=== PATIENT | female | born 1980 | race Caucasian/White ===

== ENCOUNTER 2017-10-17 17:41 | Emergency (ER) | payer OTHER, SELFPAY ==
[2017-10-17] MEDS ORDERED: HYDROcodone/Acetaminophen 5/325 mg Tablet ONE (18:13)
--- NOTE | 2017-10-17 20:21 | ULT ---
PELVIC ULTRASOUND: History: Pelvic pain. Comparison: None. Technique: Transabdominal and endovaginal imaging of a gravid uterus is performed. FINDINGS: Uterus is identified. There no myometrial masses. The uterus measures 4.4 x 6.0 x 9.3 cm. Within the endometrium is a gestational sac, yolk sac, and pole. [place] rump length is 0.57 cm, correspondi ng to gestational age of 6 weeks 3 days. There are heart tones at the rate between 106 - 111 bp m. No subchorionic hemorrhage. No free fluid. Left ovary and right ovary have a normal echotexture. Right ovary measures 2.6 x 2.6 x 2.2 cm. Left o vary measures 1.8 x 3.1 x 1.9 cm. Ovarian Doppler: Vascular flow to right and left ovary. IMPRESSION: Single intrauterine gestation with heart tones. Gestational age by crown-rump length is 6 weeks 3 days. POS: [facility]
== END 2017-10-17 19:38 | disposition home or self-care (01) ==
LOC: ERS 17:41
DX: O20.0 Threatened abortion (principal); O09.521 Supervision of elderly multigravida, first trimester; O99.331 Smoking (tobacco) complicating pregnancy, first trimester; F17.210 Nicotine dependence, cigarettes, uncomplicated; Z3A.01 Less than 8 weeks gestation of pregnancy
CPT/HCPCS: 76856; 99406

== ENCOUNTER 2017-10-24 15:54 | Emergency (ER) | payer OTHER ==
[2017-10-24 16:53] LABS: #Lymphocytes 2.5 thou/uL (1.20-3.40); #Monocytes 0.5 thou/uL (0.11-0.59); #Neutrophils 7.4 thou/uL (1.40-6.50); %Basophils 0.3 % (0.0-1.0); %Eosinophils 0.2 % (0.0-10.0); %Lymphocytes 23.8 % (21.0-51.0); %Monocytes 4.5 % (0.0-10.0); Hematocrit 37.7 % (36.0-47.0); Mean Platelet Volume 5.9 fL (7.4-10.4); Red Blood Cell (RBC) Count 3.79 mill/uL (4.20-5.40); White Blood Cell (WBC) Count 10.4 thou/uL (4.8-10.8)
[2017-10-24 18:28] LABS: ALT (SGPT) 35 U/L (8-55); AST (SGOT) 27 U/L (5-34); Alkaline Phosphatase 31 U/L (40-150); Anion Gap 10 mmol/L (10-20); BUN (Urea Nitrogen) 9 mg/dL (7.0-18.7); Bilirubin, Total 0.4 mg/dL (0.2-1.2); Calc. Creatinine Clearance 0 mL/min (70-130); Carbon Dioxide 25 mmol/L (22-29); Chloride 104 mmol/L (98-107); Estimated GFR-MDRD Greater than 90; Globulin 3.4 g/dL (2.4-3.5); Protein, Total 7.3 g/dL (6.0-8.3)
[2017-10-24 19:05] LABS: Bilirubin Negative (Negative); Blood, Urine Large (Negative); Glucose, Urine (Dipstick) Negative (Negative); Ketone, Urine 15 mg/dL (Negative); Nitrite Negative (Negative); Protein, Urine (Dipstick) Trace mg/dL (Neg-Trace)
[2017-10-24 19:20] LABS: Bacteria/HPF 1+ HPF (None Seen); Hyaline Casts/LPF 4-6 HYALINE CAST LPF (0-3 Hyaline); RBC/HPF GREATER THAN 50-TNTC HPF (0-3); WBC/HPF 0-3 HPF (0-3)
[2017-10-24] MEDS ORDERED: Acetaminophen 500 MG TAB ONE (19:48)
[2017-10-24] MEDS ORDERED: Acetaminophen/Codeine 30-300mg Tablet ONE (19:48)
== END 2017-10-24 20:48 | disposition home or self-care (01) ==
LOC: ERS 15:54
DX: O09.521 Supervision of elderly multigravida, first trimester (principal); O20.0 Threatened abortion; O99.89 Other specified diseases and conditions complicating pregnancy, childbirth and the puerperium; M54.5 Low back pain; O99.331 Smoking (tobacco) complicating pregnancy, first trimester; F17.210 Nicotine dependence, cigarettes, uncomplicated; Z3A.01 Less than 8 weeks gestation of pregnancy
CPT/HCPCS: 36415; 80053; 81003; 81015; 84702; 85025

== ENCOUNTER 2017-10-25 13:08 | Day surgery (SDC) | payer MEDICAID ==
[2017-10-25] MEDS ORDERED: HYDROmorphone 0.5 MG/0.5 ML SYRINGE ONE ×2 (13:29→14:15)
--- NOTE | 2017-10-25 15:17 | ULT ---
PELVIC ULTRASOUND INCLUDING TRANSABDOMINAL, TRANSVAGINAL, AND VASCULAR DUPLEX WITH COLOR AND SPECTRAL DOPPLER IMAGING: HISTORY: A 37-year-old female with heavy bleeding for several days and pain. COMPARISON: 10/17/17. FINDINGS: The uterus measures 13.2 x 5.6 x 6.5 cm. The right ovary measures 2.1 x 2.9 x 3.2 cm. The left ovar y measures 1.5 x 2.1 x 2.6 cm. Small 1.2 x 1.4 right ovarian follicle cyst. There is no normal gest ational sac. There is probably an abnormal small irregular-shaped gestational sac residual with some heterogeneous echogenic material within the endometrial cavity and extending into a dilated lower ut erine segment and even cervix, evidence for incomplete Trace cul-de-sac fluid. IMPRESSION: 1. Evidence for incomplete with considerable residual material within the intrauterine cavi ty including the lower uterine segment, evidence for retained products of conception. 2. Vascular duplex including color and spectral Doppler imaging demonstrates arterial inflow and anu ous outflow to both ovaries. No evidence for ovarian torsion. 3. Correlate with serum HCGs. POS: [facility]
[2017-10-25] MEDS ORDERED: Misoprostol 200 MCG TAB PR SCH (15:30)
[2017-10-25] MEDS ORDERED: Dexamethasone 20 MG/5 ML VIAL ONE (16:16)
[2017-10-25] MEDS ORDERED: Ketorolac Tromethamine 30 MG/ML VIAL ONE ×2 (16:16→20:43)
[2017-10-25] MEDS ORDERED: Succinylcholine Chloride 20 MG/ML 10 ml SYRINGE FS ONE (16:16)
[2017-10-25] MEDS ORDERED: Propofol 200 MG/20 ML VIAL ONE (16:16)
[2017-10-25] MEDS ORDERED: Ondansetron HCl/PF 4 MG/2 ML Vial ONE (16:16)
[2017-10-25] MEDS ORDERED: Lidocaine 1% PF 5 ML VIAL ONE (16:16)
[2017-10-25 16:49] LABS: #Lymphocytes 2.1 thou/uL (1.20-3.40); #Monocytes 0.7 thou/uL (0.11-0.59); %Basophils 0.3 % (0.0-1.0); %Eosinophils 0.1 % (0.0-10.0); %Lymphocytes 14.1 % (21.0-51.0); %Monocytes 4.5 % (0.0-10.0); Hematocrit 30.3 % (36.0-47.0); Mean Platelet Volume 5.9 fL (7.4-10.4); Red Blood Cell (RBC) Count 3.04 mill/uL (4.20-5.40); White Blood Cell (WBC) Count 14.8 thou/uL (4.8-10.8)
[2017-10-25] MEDS ORDERED: Fentanyl 100 MCG/2 ML VIAL ONE ×4 (18:36→21:48)
[2017-10-25] MEDS ORDERED: Midazolam HCl 2 mg/2 ml Vial ONE (18:46)
[2017-10-25] MEDS ORDERED: Doxycycline Hyclate 100 MG VIAL ONE (22:16)
--- NOTE | 2017-10-26 04:50 | OP ---
DATE OF ENCOUNTER: 10/25/2017 PREOPERATIVE DIAGNOSES: Incomplete , vaginal bleeding. POSTOPERATIVE DIAGNOSIS: Incomplete . PROCEDURE: Suction D&C. COUNTS: Correct. COMPLICATIONS: None. CONDITION: Stable to recovery room. ESTIMATED BLOOD LOSS: About 100 mL. SPECIMENS: Products of conception to pathology. INDICATIONS FOR PROCEDURE: Ms. Iliana Dalal is a 37-year-old female who presented to the emergenc y room with heavy vaginal bleeding and acute pain with a known miscarriages started last week. Given the patient's degree of pain and bleeding and with little success with medical management, decision was made to move forward with a D&C. Patient was counseled to the risks and benefits of a suction D&C and expressed informed consent and we move forward. DESCRIPTION OF PROCEDURE: The patient was placed under general anesthesia without difficulty and jolly vijay in dorsal lithotomy position in [facility]. She was prepared and draped in the normal steril e fashion. Attention was placed vaginally with the aid of an operative speculum. The single tooth t enaculum was used to grasp the anterior lip of the cervix. The cervix was noted to have a large clot at the os approximately 2 cm across. The outer os once that clot was removed the os from about 3 o' clock to 6 o'clock appeared to have a black portion of the cervix that look denuded. The uterus was sounded to approximately 13 cm with a 7-mm curved curet. The suction D&C was passed 2 to 3 times, 40 cm of water suction. A sharp curet was then passed and noted to have some material, which was subse quently removed with another 2 passes of the suction curet. At the completion of the procedure, ther e was minimal bleeding and the procedure was completed. The tenaculum was removed from the anterior lip of the cervix and again the cervix and cervical os had minimal bleeding. On bimanual exam, the u terus was firm and the cervix was soft. This is the completion of the procedure and the patient was taken out of lithotomy position and extubated and taken to recovery room in stable condition. The pa tient was given intraoperative antibiotics with doxycycline. Patient is being discharged home with 2 days of Toradol to be taken 6 hours apart 10 mg tablets and d oxycycline 100 mg to be taken 3 times a day. Patient has been given instructions that she concomitan tly used Tylenol, but not ibuprofen and then, once she was completed with the Toradol, she can then s tart ibuprofen as needed for cramping and pain. She has also been counseled. We will keep her appoi ntment on Tuesday with Dr. Derrick Garrett.
== END 2017-10-25 23:35 | disposition home or self-care (01) ==
LOC: ERS 13:08 → SDC 18:18
PROVIDERS: ATTEND Obstetrics & Gynecology
PROC: 10D17Z9 Manual Extraction of Products of Conception, Retained, Via Natural or Artificial Opening (ICD-10-PCS; principal; 2017-10-25)
DX: O03.4 Incomplete spontaneous abortion without complication (principal); F17.210 Nicotine dependence, cigarettes, uncomplicated; Z98.890 Other specified postprocedural states; Z79.1 Long term (current) use of non-steroidal anti-inflammatories (NSAID); Z79.899 Other long term (current) drug therapy
CPT/HCPCS: 36415; 76856; 80053; 81003; 81015; 84702; 85025; 86850; 86900; 86901; 88305; 96361; 96374; 96375; 96376; 99406; J0595; J1100; J1170; J1885; J2001; J2250; J2405; J2704; J3010

== ENCOUNTER 2018-07-19 10:37 | Day surgery (SDC) | payer OTHER ==
[2018-07-18 14:27] VITALS: BMI 28.3
--- NOTE | 2018-07-18 20:18 | HP ---
HISTORY OF PRESENT ILLNESS: Ms. Iliana Love is a 38-year-old at 14 weeks and 0 days who presents for a history indicated cervical cerclage. The patient has a history of 2 prior deliveries, her initial delivery was in 2004 with a 20-week previable spontaneous delivery and her second delivery was in 2006 with a 25-week delivery secondary to premature rupture of membrane that led to labor. The patient subsequently had a in 2014 where she underwent a rescue cerclage and subsequently carried a at 39 weeks. The patient has a history of delivery and cervical insufficiency. PAST MEDICAL HISTORY: 1. Advanced maternal age. 2. History of cervical insufficiency. 3. Herpes simplex virus. 4. Hepatitis C carrier. 5. Tobacco use. 6. Opioid dependence. PAST SURGICAL HISTORY: 1. delivery x2. 2. Dilation and curettage. OBSTETRICAL HISTORY: -2-3-2. 1. 2000, elective . 2. 2002, elective . 3. 2004, 20-week delivery due to cervical insufficiency. 4. 2006, 25-week delivery due to cervical insufficiency and PPROM. 5. 2014, 39-week repeat low transverse delivery (patient required rescue cerclage during this at 20 weeks. 6. 2017, spontaneous . GYNECOLOGY HISTORY: HSV, reports normal Pap smear. MEDICATIONS: 1. Suboxone 2. vitamins. ALLERGIES: STADOL. OBJECTIVE: VITAL SIGNS: Stable. GENERAL: No acute distress. See pelvic exam on day of evaluation and cervix is closed, long with no signs of funneling or cervical dilation. LABORATORY DATA: Blood type is O positive, antibody screen is negative. NIPT testing is negative. RPR negative, HIV negative, hepatitis B surface antigen is negative, rubella is immune. Hemoglobin is 12.8, hematocrit is 39.2. Pap was normal. Gonorrhea and chlamydia negative. Urine drug screen negative. ASSESSMENT: A 38-year-old at 14 weeks and 0 days with history of cervical insufficiency, advanced maternal age. HSV, HCV, tobacco use and opioid dependence. PLAN: The patient has seen maternal medicine for recommendations and was counseled on options of serial cervical lengths versus a history indicated cervical cerclage along with weekly 17-hydroxyprogesterone injections starting at 16 weeks. The patient desires a history indicated cervical cerclage for prophylaxis due to her history. The patient was also counseled on the remaining comorbidities to her and has decreased tobacco use. She is stable on her Suboxone dose and has no recent issues with hepatitis or HSV. The patient has been consented for cervical cerclage today understanding the risk of still having delivery due to cervical insufficiency, risk of rupture of membranes, spontaneous and chorioamnionitis. JUANITA
[2018-07-19] MEDS ORDERED: CEFAZOLIN/Water 2 GM/20 ML SYRINGE ONE (12:14)
[2018-07-19] MEDS ORDERED: CEFAZOLIN 1 GM VIAL SLOW IVP SCH (12:15)
[2018-07-19 12:25] LABS: #Basophils 0.1 thou/uL (0.0-0.2); #Lymphocytes 1.7 thou/uL (1.20-3.40); #Monocytes 0.4 thou/uL (0.11-0.59); #Neutrophils 5.8 thou/uL (1.40-6.50); %Basophils 0.7 % (0.0-1.0); %Eosinophils 0.4 % (0.0-10.0); %Lymphocytes 20.9 % (21.0-51.0); %Monocytes 4.7 % (0.0-10.0); %Neutrophils 73.3 % (42.0-75.0); Hemoglobin 12.9 g/dL (12.0-16.0); Mean Corpuscular HGB CONC 35.7 g/dL (32.0-36.0); Mean Corpuscular Hemoglobin 33.9 pg (27.0-31.0); Mean Corpuscular Volume 94.9 fL (78.0-98.0); Mean Platelet Volume 6.3 fL (7.4-10.4); Platelet Count 334 thou/uL (130-400); Red Blood Cell (RBC) Count 3.81 mill/uL (4.20-5.40); White Blood Cell (WBC) Count 7.9 thou/uL (4.8-10.8)
[2018-07-19] MEDS ORDERED: Lidocaine 1% (PF) 30 ML VIAL ONE (12:46)
[2018-07-19] MEDS ORDERED: Fentanyl 100 MCG/2 ML VIAL ONE (12:48)
[2018-07-19 12:58] LABS: ALT (SGPT) 39 U/L (8-55); AST (SGOT) 29 U/L (5-34); Albumin 3.9 g/dL (3.5-5.0); Alkaline Phosphatase 37 U/L (40-150); Anion Gap 12 mmol/L (10-20); BUN (Urea Nitrogen) 7 mg/dL (7.0-18.7); Bilirubin, Total 0.4 mg/dL (0.2-1.2); Calc. Creatinine Clearance 153 mL/min (70-130); Calcium 9.5 mg/dL (7.8-10.44); Carbon Dioxide 24 mmol/L (22-29); Chloride 104 mmol/L (98-107); Estimated GFR-MDRD Greater than 90; Globulin 3.5 g/dL (2.4-3.5); Glucose 76 mg/dL (70-105); Potassium 3.6 mmol/L (3.5-5.1); Protein, Total 7.4 g/dL (6.0-8.3); Sodium 136 mmol/L (136-145)
[2018-07-19] MEDS ORDERED: Lidocaine 2% 10 ML INJ ONE (13:02)
[2018-07-19] MEDS ORDERED: Bupivacaine 0.75% W/DEXTROSE 8.25% 2 ML AMP ONE (13:02)
[2018-07-19 13:30] LABS: Amphetamine Not Detected (NotDetected); Barbiturates Screen Not Detected (NotDetected); Benzodiazepine Screen Not Detected (NotDetected); Cocaine Metabolite Screen Not Detected (NotDetected); Medtox Control Line Valid? VALID (VALID); Medtox Reader # READER 1; Methadone Not Detected (NotDetected); Methamphetamine Not Detected (NotDetected); Opiate Screen Not Detected (NotDetected); Oxycodone Screen Not Detected (NotDetected); Phencyclidine (PCP) Not Detected (NotDetected); THC/Cannabinoid Screen Not Detected (NotDetected); Tricyclic Screen Not Detected (NotDetected)
[2018-07-19] MEDS ORDERED: Acetaminophen 500 MG TAB ONE (14:25)
--- NOTE | 2018-07-20 03:39 | OP ---
PREOPERATIVE DIAGNOSES: 1. A 14-week and 0-day intrauterine . 2. History of cervical insufficiency requiring a rescue cerclage. 3. Advanced maternal age. 4. Hepatitis C carrier. 5. Tobacco use and opioid dependence. POSTOPERATIVE DIAGNOSES: 1. A 14-week and 0-day intrauterine . 2. History of cervical insufficiency requiring a rescue cerclage. 3. Advanced maternal age. 4. Hepatitis C carrier. 5. Tobacco use and opioid dependence. PROCEDURE: Transvaginal Dalal cervical cerclage using Mersilene tape. SURGEON: Sari Thorne D.O. ESTIMATED BLOOD LOSS: 20 mL. COMPLICATIONS: None. FINDINGS: heart tones were assessed prior to surgery was 160s. Normal appearing external genitalia, normal vaginal and cervical epithelium with a closed cervical os. INDICATIONS FOR THE PROCEDURE: Ms. Iliana Love is a 38-year-old G7, P2, at 14 weeks and 0 days, who presents for a history indicated cervical cerclage. The patient has a history of 2 prior deliveries. Her initial delivery in 2004 was at 20 weeks of previable spontaneous delivery and her second delivery was in 2006 with a 25-week delivery secondary to premature rupture of membranes had lead to labor and cervical insufficiency. The patient had undergone consultation with maternal medicine, reviewing options of serial cervical length versus a history indicated cerclage and the patient elected to have a history indicated cerclage as well as a weekly 17-hydroxyprogesterone. The patient has been consented for risks, benefits, and alternatives to the cervical cerclage. NIPT and NT are normal. PROCEDURE IN DETAIL: The patient was brought to the operating room. Spinal anesthesia was placed and the patient was placed in dorsal lithotomy position. She was prepped and draped in a sterile fashion. An official timeout was performed. She was given Ancef for surgical prophylaxis. A right-angle was placed in both the posterior and anterior aspect of the vagina. The anterior and posterior aspect of the cervix were grasped using ring forceps. A Dalal transvaginal cervical cerclage was performed in a circumferential fashion using Mersilene tape starting at the 12 o'clock position and ending near the 12 o' clock position. The cerclage was placed approximately 2.5 cm above the external os as further the superior cerclage was not able to be placed due to the patient's anatomy. The cerclage was then secured tightly and the cervical os was noted to be firmly closed after placement. The patient was then taken out of dorsal lithotomy and placed back into supine position. All counts were correct x2. There were no complications. The details of the surgery were reviewed with the patient. JUANITA
[2018-07-21 15:29] LABS: HCV log10 5.969 (.); Hep C PCR-Quant 931000 IU/mL (.)
== END 2018-07-19 17:55 | disposition home or self-care (01) ==
LOC: SDC 10:37
PROVIDERS: ATTEND Obstetrics & Gynecology
PROC: 0UVC7ZZ Restriction of Cervix, Via Natural or Artificial Opening (ICD-10-PCS; principal; 2018-07-19)
DX: O34.32 Maternal care for cervical incompetence, second trimester (principal); O99.830 Other infection carrier state complicating pregnancy; B18.2 Chronic viral hepatitis C; O09.522 Supervision of elderly multigravida, second trimester; O99.322 Drug use complicating pregnancy, second trimester; F11.20 Opioid dependence, uncomplicated; O99.332 Smoking (tobacco) complicating pregnancy, second trimester; F17.200 Nicotine dependence, unspecified, uncomplicated; Z3A.14 14 weeks gestation of pregnancy
CPT/HCPCS: 36415; 80053; 80306; 85025; 86850; 86900; 86901; 87522; J2001; J3010; J3490

== ENCOUNTER 2018-08-08 13:53 | Day surgery (SDC) | payer OTHER ==
[2018-08-08 15:42] VITALS: BMI 28.3
[2018-08-08 15:50] LABS: #Eosinphils 0.1 thou/uL (0.0-0.7); #Lymphocytes 2.2 thou/uL (1.20-3.40); #Monocytes 0.5 thou/uL (0.11-0.59); #Neutrophils 6.2 thou/uL (1.40-6.50); %Eosinophils 0.8 % (0.0-10.0); %Lymphocytes 24.2 % (21.0-51.0); %Monocytes 5.6 % (0.0-10.0); %Neutrophils 69.4 % (42.0-75.0); Mean Corpuscular HGB CONC 34.7 g/dL (32.0-36.0); Mean Corpuscular Hemoglobin 33.4 pg (27.0-31.0); Mean Corpuscular Volume 96.4 fL (78.0-98.0); Mean Platelet Volume 6.6 fL (7.4-10.4); Platelet Count 337 thou/uL (130-400); RBC Distribution Width 12.3 % (11.5-14.5)
--- NOTE | 2018-08-08 17:33 | ULT ---
RIGHT UPPER QUADRANT ULTRASOUND: Date: 08/08/18 INDICATION: Right upper quadrant pain with eating. History of 17 week with nausea and vomiting. FINDINGS: No focal hepatic lesion is evident. Gallbladder appears within normal limits. No sonographic Nunez's sign reported. Common bile duct measures 5.3 mm. Visualized pancreas unremarkable. Right kidney wilian ures 11.1 cm in length. IMPRESSION: No acute sonographic abnormality of right upper quadrant. POS: [facility]
--- NOTE | 2018-08-09 01:42 | PRG ---
DATE OF SERVICE: 08/08/2018 OB ER ENCOUNTER PRIMARY OB: Dr. Sari Thorne. CHIEF COMPLAINT: Pelvic pressure and abdominal pains. HISTORY OF PRESENT ILLNESS: The patient is a 38-year-old G7, P2 female with an intrauterine pregnanc y at 17 weeks and prophylactic cerclage placed at 14 weeks for history of incompetent cervix. The pa janice reports several week history of upper abdominal pain with nausea and vomiting and seems to be a ssociated with food. The patient has a 3-week history of upper abdominal pain that seems to be assoc iated with food and has nausea with vomiting at times. The patient reports more recently in the last day or two, patient had more generalized abdominal pain and also down into the lower pelvis. She norman s a history of miscarriages. History of incompetent cervix with a previous at 20 weeks and has a cerclage in place since week 14 with this . She is concerned that something may be g oing on and this could harm to the baby. The patient denies fever. She denies headache, chest pain, shortness of breath, diarrhea. She has had a bit of constipation. Denies any new rashes, hip probl ems, knee problems, muscle weakness. She reports lower pelvic pain, mid abdominal pain and upper abd ominal pain. Denies urinary urgency or frequency. Denies recent intercourse within the last several weeks. PAST MEDICAL HISTORY: Hepatitis C, history of stomach ulcers. PAST SURGICAL HISTORY: section x2, D&C, cervical prophylactic cerclage placed 07/19/2018. 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 She reports one half to 1 pack per day of smoking. ALLERGIES: No known drug allergies. MEDICATIONS: vitamins. Patient has recently been on a course of antibiotics for vaginitis several weeks ago. OB LABS: Unavailable at this time. REVIEW OF SYSTEMS: Per HPI. PHYSICAL EXAMINATION: VITAL SIGNS: Blood pressure 137/94, pulse of 106, respiratory rate of 18, temperature 98.7. GENERAL: She appears to be in no acute distress. She is alert and oriented, cooperative and pleasan t to interact with. HEAD: Normocephalic, atraumatic. LUNGS: Clear to auscultation bilaterally. HEART: Regular rate and rhythm. ABDOMEN: Gravid and soft. She does have tenderness to palpation, kind of diffusely, particularly in the mid to lower pelvis seems to be with palpation and deviation of the uterus. She has some right upper quadrant tenderness to palpation. EXTREMITIES: Nontender and nonedematous. GENITOURINARY: Vulva is without masses, lesions or erythema. Vagina is moist. She does have partic ular tenderness. The patient seems to have quite a bit of tenderness on her pelvic floor musculature puborectalis muscles or levator ani. On visualization of the cervix, patient has what appears to be normal colored discharge, appropriate with presence of a cerclage. It is white in color, does not appeared to be a purulent. Cervix appears to be normal, not inflamed or friable. The cerclage is intact visually. There is no bleeding and again no purulence. On digital exam, patient is very t boris on the posterior vagina on those pelvic floor muscles. Cervix is closed and the cerclage appea rs to be intact with no growing defects and no presenting or bulging parts within the uterus. Heart tones are noted to be in the 140s-150s by ultrasound visualization. There appears to be no fun neling of the cervix. Fetus is active and moving. LABORATORY DATA AND IMAGING DATA: CBC was collected with white count of 9.0, hemoglobin of 12, hemat ocrit 34.7, platelets of 337,000. A right upper quadrant ultrasound was performed and on preliminary audio report, it sounds like her gallbladder is within normal limits and has no abnormal pathology o r visible pathology by ultrasound. Final report unavailable at this time. SUPERVISOR UNLOADING-3 showed no evidence of Trichomonas, bacterial vaginosis or Disha. ASSESSMENT AND PLAN: The patient is a 38-year-old female multiparous with an intrauterine at 17 weeks with a prophylactic cerclage in place. The patient reports she is feeling better since p resentation. She has had no evidence of labor, no evidence of infection of the cervix or uterus and no evidence of gallbladder disease. The patient does have a history of ulcers which could be contrib uting to her upper abdominal pain. A lower abdominal pelvic pain seems to be musculoskeletal in natu re. The patient has been counseled to take Tylenol 3 times a day as needed for pain. She has also been counseled when she sees her primary OB this Tuesday to discuss the possibility of testing fo r/treatment for ulcer.
== END 2018-08-08 16:58 | disposition home or self-care (01) ==
LOC: ERS 13:53 → L&D/OP 13:53 → SDC/OP 13:53 → EDSTATUS 14:21 → L&D/OP 16:58
PROVIDERS: ATTEND Obstetrics & Gynecology
DX: O99.89 Other specified diseases and conditions complicating pregnancy, childbirth and the puerperium (principal); R10.10 Upper abdominal pain, unspecified; R10.2 Pelvic and perineal pain; O34.32 Maternal care for cervical incompetence, second trimester; O99.332 Smoking (tobacco) complicating pregnancy, second trimester; F17.210 Nicotine dependence, cigarettes, uncomplicated; Z79.899 Other long term (current) drug therapy; Z3A.17 17 weeks gestation of pregnancy
CPT/HCPCS: 36415; 76705; 76815; 85025; 87480; 87510; 87660; 99284

== ENCOUNTER 2018-10-16 18:46 | Day surgery (SDC) | payer OTHER ==
[2018-10-16 19:27] VITALS: BMI 33.3
[2018-10-16 20:08] LABS: Amnisure Internal Control QC ACCEPTABLE (ACCEPTABLE); Amnisure Test No Membranes Rupture (No Rupture)
--- NOTE | 2018-10-16 21:18 | PRG ---
DATE OF SERVICE: 10/16/2018 TIME OF SERVICE: 2010 hours. PRESENTING COMPLAINT: Possible rupture of membranes at 26 weeks' gestation. HISTORY OF PRESENT ILLNESS: Ms. Dalal is a 38-year-old well known to the labor and delivery unit. She has a cerclage. She is a G7, P0-3-3-2. She sees Dr. Thorne, at [facility] for which she had a Dalal cerclage placed in her early . She reports leaking some fluid earlier today, possibly from her vagina and she is concerned about possible rupture of membranes. 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 x1. x2 and miscarriage x1. OB history is significant for hepatitis C and history of drug and alcohol abuse as well as delivery in an incompetent cervix. Blood type is O positive, antibody negative, Pap negative, rubella immune, VDRL nonreactive. Hepatitis B, GC, Chlamydia are negative. PAST SURGICAL HISTORY: C-sections and cerclage. MEDICAL HISTORY: Hep C, in remission. ALLERGIES: DENIES. MEDICATIONS: vitamins. SOCIAL HISTORY: Denies current alcohol or drug abuse. FAMILY HISTORY: Noncontributory. REVIEW OF SYSTEMS: Noncontributory. PHYSICAL EXAMINATION: GENERAL: White female, in no acute distress. VITAL SIGNS: Temperature 98.5, respirations 18, pulse 85, and blood pressure 118/72. HEENT: Within normal limits. LUNGS: Clear to auscultation bilaterally. HEART: Regular rhythm. ABDOMEN: Soft and nontender without palpable contractions or vulvar lesions. Vagina; no significant discharge noted. AmniSure collected. Cervical exam deferred. EXTREMITIES: Without clubbing, cyanosis, or edema. heart rate monitoring is carried out for greater than 30 minutes, no contraction was noted with a category 1 heart rate tracing, baseline 130s was noted. AmniSure test was negative for rupture of membranes. IMPRESSION: History of cerclage and incompetent cervix. No evidence of rupture of membranes. PLAN: Discharge home. ER precautions. Keep scheduled followup with Dr. Thorne. Job ID: [id number]
== END 2018-10-16 20:30 | disposition home health service, planned readmission (86) ==
LOC: L&D/OP 18:46
PROVIDERS: ATTEND Obstetrics & Gynecology
DX: O26.892 Other specified pregnancy related conditions, second trimester (principal); O34.32 Maternal care for cervical incompetence, second trimester; O09.522 Supervision of elderly multigravida, second trimester; Z3A.26 26 weeks gestation of pregnancy; Z79.899 Other long term (current) drug therapy
CPT/HCPCS: 84112; 99283

== ENCOUNTER 2018-12-29 09:34 | Inpatient (IN) | payer OTHER ==
--- NOTE | 2018-12-29 08:11 | PDOC.LDHP ---
Labor and Delivery H&P Chief complaint: scheduled section HPI: 38 yo @ 37wd2 who presents for RCD with RRS and cerclage removal. Pt antepartum course complicated by CDx2 (suspect classical for first CD), HCV, Opioid dependance on Subutex, cerclage in place for h/o cervical insufficiency , tobacco use, AMA, HSV on suppression. Pt has been approved for RRS due to mother h/o fallopian tube and uterine cancer. Current gestational age (weeks): 37 Due date: 01/17/19 Dating criteria: first trimester ultrasound Grav: 7 Para: 2 OB History Details: 2000 - 16 week SAB 2003 - 6 week SAB 2005 - 20 week PTVD 2006 - 25 week PTCS 2015 - 39 week LTCS 2018 - 7 week SAB 2019 - current Current complications: other (see HPI above) Abnormal US findings: No Past Medical History: AMA HCV HSV Opioid dependance Current medications: pre- vitamins, other (s/p jeremy Valtrex) Previous surgical history: dilation and curettage, other (CD x2 (suspect initial classical) cerclage) Allergies/Adverse Reactions: Allergies Allergy/AdvReac Type Severity Reaction Status Date / Time No Known Drug Allergies Allergy Verified 12/29/18 11:30 Social history: tobacco use, drug use (history of IVDU) - Physical Exam Vital signs reviewed and normal: yes General: NAD Heart: RRR Lungs: nonlabored breathing Abdomen: gravid Extremeties: no edema FHT: category 1 [place] contractions every: none - OB Labs Blood type: O RH: positive Antibody Screen: positive HIV: positive RPR: positive HEPSAg: positive 1 hour GCT: unknown (HbA1C wnl, never completed GTT) GBS: positive Urine drug screen: positive (positive ONLY for Buprenorphine which she is prescribed for h/o opioid dependance) Rubella: immune Additional Labs: NIPT wnl HCV + - last VL 931,000 - Assessment 38 yo @ 37wd2 admit for RCD with RRS and cerclage removal H/O CDx2 (suspect classical for first CD) HCV Opioid dependance on Subutex Cerclage in place for h/o cervical insufficiency Tobacco use AMA HSV on suppression. - Plan Plan: to OR for section, informed consent obtained, anesthesia consult for pain management -: Continue subutex PP.
[2018-12-29] MEDS ORDERED: Ondansetron PF 4 MG/2 ML Vial IVP PRN ×2 (09:48→12:36)
[2018-12-29] MEDS ORDERED: CEFAZOLIN/Water 2 GM/20 ML SYRINGE SLOW IVP SCH (09:48)
[2018-12-29] MEDS ORDERED: Promethazine HCl 25 MG/ML VIAL IM PRN ×2 (09:48→12:36)
[2018-12-29] MEDS ORDERED: Acetaminophen 500 MG TAB PO PRN (09:48)
[2018-12-29] MEDS ORDERED: Bicitra 30 ML UDCUP PO SCH (09:48)
[2018-12-29] MEDS ORDERED: CEFAZOLIN 2 GM in Premix Bag 1 BAG IVPB SCH (10:00)
[2018-12-29] MEDS: Lactated Ringer's 1,000 ML IV SCH ×3 (10:30→17:46)
[2018-12-29 10:56] LABS: Hemoglobin 12.9 g/dL (12.0-16.0); Mean Corpuscular HGB CONC 34.3 g/dL (32.0-36.0); Mean Corpuscular Hemoglobin 33.2 pg (27.0-31.0); Mean Corpuscular Volume 96.9 fL (78.0-98.0); Mean Platelet Volume 7.2 fL (7.4-10.4); Platelet Count 382 thou/uL (130-400); Red Blood Cell (RBC) Count 3.89 mill/uL (4.20-5.40); White Blood Cell (WBC) Count 11.8 thou/uL (4.8-10.8)
[2018-12-29 11:09] LABS: ALT (SGPT) 13 U/L (8-55); AST (SGOT) 18 U/L (5-34); Albumin 3.6 g/dL (3.5-5.0); Alkaline Phosphatase 79 U/L (40-150); Anion Gap 15 mmol/L (10-20); BUN (Urea Nitrogen) 8 mg/dL (7.0-18.7); Bilirubin, Total 0.5 mg/dL (0.2-1.2); Calc. Creatinine Clearance 0 mL/min (70-130); Calcium 9.1 mg/dL (7.8-10.44); Carbon Dioxide 18 mmol/L (22-29); Chloride 108 mmol/L (98-107); Estimated GFR-MDRD Greater than 90; Globulin 3.5 g/dL (2.4-3.5); Glucose 78 mg/dL (70-105); Potassium 4.3 mmol/L (3.5-5.1); Protein, Total 7.1 g/dL (6.0-8.3); Sodium 137 mmol/L (136-145)
[2018-12-29 11:25] LABS: Syphilis Antibody Nonreactive (Nonreactive); Syphilis Antibody Index 0.09 S/CO (<1.00 Non-Reactive)
[2018-12-29 11:26] LABS: HBSAg Index 0.22 S/CO (0-0.99); HIV (1/2) Antibody/Antigen Non-Reactive (NonReactive); HIV 1/2 INDEX 0.09 S/CO (<1.00); Hep B Surf Ag Non-Reactive S/CO (NonReactive)
[2018-12-29 11:29] VITALS: BMI 28.0
[2018-12-29] MEDS ORDERED: MORPHINE 5 MG/10 ML PF VIAL ONE ×2 (12:01→15:58)
[2018-12-29] MEDS ORDERED: diphenhydrAMINE 50 MG/ML VIAL ONE ×2 (12:02→15:51)
[2018-12-29] MEDS ORDERED: Oxytocin 10 UNITS/ML VIAL ONE (12:02)
[2018-12-29] MEDS ORDERED: PHENYLEPHRINE-NS 100 MCG/ML 10 ML SYRINGE ONE ×2 (12:02→15:51)
[2018-12-29] MEDS ORDERED: Ondansetron PF 4 MG/2 ML Vial ONE ×2 (12:02→15:51)
[2018-12-29] MEDS ORDERED: Dexamethasone 4 mg/ml Vial ONE (12:02)
[2018-12-29] MEDS ORDERED: Ketorolac Tromethamine 30 MG/ML VIAL ONE ×2 (12:02→15:51)
[2018-12-29] MEDS ORDERED: Eucerin (Mineral Oil/Petrolatum,White) 30 gm Jar TOP PRN (12:36)
[2018-12-29] MEDS ORDERED: L&D-Morphine 4 MG/ML VIAL SLOW IVP PRN (12:36)
[2018-12-29] MEDS ORDERED: Promethazine HCl 25 MG SUPP PR PRN (12:36)
[2018-12-29] MEDS ORDERED: Naloxone HCl 0.4 mg/ml Vial IV PRN (12:36)
[2018-12-29] MEDS ORDERED: Meperidine HCl/PF 25 MG/ML VIAL SLOW IVP PRN (12:36)
[2018-12-29] MEDS ORDERED: Ondansetron HCl/PF 4 MG/2 ML Vial IVP PRN (12:36)
[2018-12-29] MEDS ORDERED: HYDROmorphone 2 MG/ML VIAL SLOW IVP PRN (12:36)
[2018-12-29] MEDS ORDERED: diphenhydrAMINE 50 MG/ML VIAL IVP PRN (12:36)
[2018-12-29] MEDS ORDERED: Naloxone HCl 0.4 mg/ml Vial IVP PRN ×2 (12:36)
[2018-12-29] MEDS ORDERED: Communication Order-Pharmacy FS SCH (12:45)
[2018-12-29] MEDS ORDERED: Ketorolac Tromethamine 30 MG/ML VIAL IVP SCH (12:45)
[2018-12-29] MEDS ORDERED: Midazolam HCl 2 mg/2 ml Vial ONE (13:08)
[2018-12-29 13:43] LABS: Amphetamine Not Detected (NotDetected); Barbiturates Screen Not Detected (NotDetected); Benzodiazepine Screen Not Detected (NotDetected); Cocaine Metabolite Screen Not Detected (NotDetected); Medtox Control Line Valid? VALID (VALID); Medtox Reader # READER 4; Methadone Not Detected (NotDetected); Methamphetamine Not Detected (NotDetected); Opiate Screen Detected (NotDetected); Oxycodone Screen Not Detected (NotDetected); Phencyclidine (PCP) Not Detected (NotDetected); THC/Cannabinoid Screen Not Detected (NotDetected); Tricyclic Screen Not Detected (NotDetected)
--- NOTE | 2018-12-29 13:45 | PDOC.OPDEL ---
OB Operative/Delivery Note Delivery Dr/Surgeon: Sari Thorne DO Assist: Siddhartha Melton MD Pre-Delivery Diagnosis: scheduled section Procedure/Post Delivery Dx: other (RLTCS, RRS, cerclage removal) Weeks gestation: 37 Anesthesia: spinal - Findings A Sex: female - 1 min: 8 - 5 min: 9 - Additional Findings/Plan Placenta delivered: spontaneous findings: low transverse hysterotomy without extension, normal uterus, normal tubes, normal ovaries Estimated blood loss: QBL 451 mL Compilations/Other Findings: Thin adhesion along JOSE, uterine window. Otherwise normal appearing uterus, fallopian tubes and ovaries Normal placenta. Thin meconium stained amniotic fluid Infant in cephalic presentation Post delivery plan: routine recovery
[2018-12-29] MEDS ORDERED: Meperidine HCl/PF 25 MG/ML VIAL ONE (14:58)
[2018-12-29] MEDS ORDERED: Dexamethasone 20 MG/5 ML VIAL ONE (15:51)
[2018-12-29] MEDS ORDERED: Morphine 4 MG/ML VIAL SLOW IVP PRN (16:03)
[2018-12-29] MEDS ORDERED: Methylergonovine 0.2 MG/ML VIAL IM PRN (16:45)
[2018-12-29] MEDS ORDERED: NS / Oxytocin 40 units/1000ml 1,000 ML IV SCH (16:45)
[2018-12-29] MEDS ORDERED: Bisacodyl 10 MG SUPP PR PRN (16:45)
[2018-12-29] MEDS ORDERED: Misoprostol 200 MCG TAB PR PRN (16:45)
[2018-12-29] MEDS: Ketorolac Tromethamine 30 MG/ML VIAL IVP PRN ×2 (17:43→22:41)
[2018-12-29] MEDS: Morphine 2 MG/ML SYRINGE SLOW IVP PRN ×2 (19:55→22:41)
[2018-12-29] MEDS: Ferrous Sulfate 325 MG TAB PO SCH (22:39)
[2018-12-29] MEDS: Docusate Calcium (SURFAK) 240 MG CAP PO SCH (22:40)
--- NOTE | 2018-12-30 00:22 | PDOC.PP ---
Post Progress Note Post Day #: POD#1 Subjective: resting w/o complaints. PO intake tolerated: yes Flatus: no Ambulation: no Vital Signs (12 hours) Temp Pulse Resp BP Pulse Ox 12/29/18 20:20 98.6 F 85 18 116/60 12/29/18 20:00 99 12/29/18 18:05 98.1 F 62 18 122/66 12/29/18 16:30 98.3 F 66 20 134/86 98 Weight Weight 86.183 kg - Physical Examination General: NAD Respiratory: non-labored breathing Abdominal: no distention Skin: CS incision dry & intact Psychiatric: normal affect Result Diagrams: 12/29/18 10:31 12/29/18 10:32 Additional Labs: Post Labs Blood Type O POSITIVE 12/29/18 10:32 Hep Bs Antigen Non-Reactive S/CO (NonReactive) 12/29/18 10:31 - Assessment/Plan Doing well s/p repeat C/S with B salpingectomies. Routine postop care. H/H pending this AM.
[2018-12-30] MEDS: Morphine 2 MG/ML SYRINGE SLOW IVP PRN ×2 (01:48→03:32)
[2018-12-30] MEDS: Lactated Ringer's 1,000 ML IV SCH (01:49)
[2018-12-30] MEDS: Simethicone Chewable 80 MG TAB PO PRN ×2 (02:39→09:06)
[2018-12-30] MEDS: Ketorolac Tromethamine 30 MG/ML VIAL IVP PRN ×2 (03:31→09:06)
[2018-12-30] MEDS: traMADol HCl 50 MG TAB PO PRN ×4 (06:55→20:03)
[2018-12-30 06:57] LABS: Hemoglobin 10.7 g/dL (12.0-16.0); Mean Corpuscular HGB CONC 34.3 g/dL (32.0-36.0); Mean Corpuscular Hemoglobin 33.8 pg (27.0-31.0); Mean Corpuscular Volume 98.4 fL (78.0-98.0); Mean Platelet Volume 6.7 fL (7.4-10.4); Platelet Count 330 thou/uL (130-400); RBC Distribution Width 11.7 % (11.5-14.5); Red Blood Cell (RBC) Count 3.16 mill/uL (4.20-5.40); White Blood Cell (WBC) Count 12.7 thou/uL (4.8-10.8)
[2018-12-30] MEDS: Docusate Calcium (SURFAK) 240 MG CAP PO SCH ×2 (09:05→20:04)
[2018-12-30] MEDS: SUBUTEX 8 MG SL SCH ×2 (09:06→21:10)
[2018-12-30] MEDS: Prenatal Vitamin 1 TAB PO SCH (09:06)
[2018-12-30] MEDS: Ferrous Sulfate 325 MG TAB PO SCH (12:56)
[2018-12-30] MEDS: Ibuprofen 800 MG TAB PO SCH ×2 (14:42→21:10)
[2018-12-31] MEDS: Lactated Ringer's 1,000 ML IV SCH ×4 (02:36→09:18)
[2018-12-31] MEDS: Ferrous Sulfate 325 MG TAB PO SCH ×3 (02:37→21:13)
[2018-12-31] MEDS: traMADol HCl 50 MG TAB PO PRN ×4 (04:49→21:45)
[2018-12-31] MEDS: Ibuprofen 800 MG TAB PO SCH ×3 (04:49→21:08)
--- NOTE | 2018-12-31 07:36 | PDOC.PP ---
Post Progress Note Post Day #: 2 Subjective: Doing well. Pain controlled, able to urinate without difficulty. PO intake tolerated: yes Flatus: yes Ambulation: yes Vital Signs (12 hours) Temp Pulse Resp BP Pulse Ox 12/31/18 04:45 97.9 F 68 20 140/68 12/30/18 20:00 98.4 F 62 16 133/71 96 Weight Weight 190 lb - Physical Examination General: NAD Respiratory: non-labored breathing Abdominal: lochia (normal), no distention, appropriately TTP Fundus firm & at: below umbilicus Skin: CS incision dry & intact, no rash Neurological: no gross focal deficits Psychiatric: A&Ox3, normal affect Result Diagrams: 12/30/18 06:32 12/29/18 10:32 Additional Labs: Post Labs Blood Type O POSITIVE 12/29/18 10:32 Hep Bs Antigen Non-Reactive S/CO (NonReactive) 12/29/18 10:31 (1) Hepatitis C, chronic, maternal, antepartum Code(s): O98.419 - VIRAL HEPATITIS COMPLICATING , UNSP TRIMESTER; B18.2 - CHRONIC VIRAL HEPATITIS C Status: Acute (2) labor Code(s): O60.00 - LABOR WITHOUT DELIVERY, UNSPECIFIED TRIMESTER Status : Acute (3) Previous delivery affecting , delivered Code(s): O34.21 - MATERNAL CARE FOR SCAR FROM PREVIOUS * DO NOT USE * Status: Acute - Assessment/Plan Doing well on POD 2. Baby must stay for 2 more days so patient is not ready for d/c at this time. Continue routine postop management.
[2018-12-31] MEDS: Docusate Calcium (SURFAK) 240 MG CAP PO SCH ×2 (08:59→21:08)
[2018-12-31] MEDS: Prenatal Vitamin 1 TAB PO SCH (08:59)
[2018-12-31] MEDS: SUBUTEX 8 MG SL SCH ×2 (09:00→21:08)
[2018-12-31 20:07] LABS: Hep C PCR-Quant 1780000 IU/mL (.)
[2019-01-01] MEDS: traMADol HCl 50 MG TAB PO PRN (01:56)
[2019-01-01] MEDS: Lactated Ringer's 1,000 ML IV SCH ×2 (01:59→11:05)
[2019-01-01] MEDS: Ibuprofen 800 MG TAB PO SCH (06:15)
[2019-01-01 08:42] VITALS: BP 117/72; TEMP 97.9
[2019-01-01] MEDS: Prenatal Vitamin 1 TAB PO SCH (09:33)
[2019-01-01] MEDS: SUBUTEX 8 MG SL SCH (09:33)
[2019-01-01] MEDS: Docusate Calcium (SURFAK) 240 MG CAP PO SCH (09:33)
[2019-01-01] MEDS: Ferrous Sulfate 325 MG TAB PO SCH (09:34)
--- NOTE | 2019-01-01 10:11 | PDOC.PP ---
Post Progress Note Post Day #: 3 Subjective: No concerns. Pain controlled. Breast and bottle feeding. taking Subutex from home through pharmacy. Denies any w/d sx PO intake tolerated: yes Flatus: yes Ambulation: yes Vital Signs (12 hours) Temp Pulse Resp BP Pulse Ox 01/01/19 08:00 97.9 F 73 18 117/72 96 Weight Weight 190 lb - Physical Examination General: NAD Cardiovascular: RRR Respiratory: non-labored breathing Abdominal: no distention, appropriately TTP Fundus firm & at: below umbilicus Extremities: negative homans (B) Skin: CS incision dry & intact, no rash Neurological: no gross focal deficits Psychiatric: A&Ox3, normal affect Result Diagrams: 12/30/18 06:32 12/29/18 10:32 Additional Labs: Post Labs Blood Type O POSITIVE 12/29/18 10:32 Hep Bs Antigen Non-Reactive S/CO (NonReactive) 12/29/18 10:31 (1) delivery delivered Code(s): O82 - ENCOUNTER FOR DELIVERY WITHOUT INDICATION Status: Acute (2) Opioid dependence Code(s): F11.20 - OPIOID DEPENDENCE, UNCOMPLICATED Status: Acute (3) Anemia Code(s): D64.9 - ANEMIA, UNSPECIFIED Status: Acute Qualifiers: Other causes of anemia: acute posthemorrhagic (4) Hepatitis C, chronic, maternal, antepartum Code(s): O98.419 - VIRAL HEPATITIS COMPLICATING , UNSP TRIMESTER; B18.2 - CHRONIC VIRAL HEPATITIS C Status: Acute - Assessment/Plan PPD3 VSSAF Continue PP care at this time. Infant has to stay another day for monitoring. Plan to d/c home tomorrow with Rx for subutex and tramadol.
--- NOTE | 2019-01-01 12:34 | OP ---
DATE OF PROCEDURE: 12/29/2018 PREOPERATIVE DIAGNOSES: 1. 37-week two day intrauterine . 2. History of delivery x2 with suspicion of a prior classical C- section. 3. Opioid dependence, on Subutex. 4. Advanced maternal age. 5. Hepatitis C. 6. Herpes simplex virus. 7. History of cervical insufficiency with cerclage in place. 8. Family history of fallopian tube cancer and desired a risk reducing salpingectomy. POSTOPERATIVE DIAGNOSES: 1. 37-week two day intrauterine . 2. History of delivery x2 with suspicion of a prior classical C- section. 3. Opioid dependence, on Subutex. 4. Advanced maternal age. 5. Hepatitis C. 6. Herpes simplex virus. 7. History of cervical insufficiency with cerclage in place. 8. Family history of fallopian tube cancer and desired a risk reducing salpingectomy. PROCEDURE: 1. Repeat low-transverse delivery via Pfannenstiel skin incision. 2. Bilateral risk reducing salpingectomy. 3. Removal of [place] cervical cerclage. SURGEON: Sari Thorne DO MACHINE SKIVER: Ran Melton MD COMPLICATIONS: None. QBL: 451 mL. ANESTHESIA: Spinal. FINDINGS: Thin adhesions to the lower uterine segment, uterine window within the lower uterine segment. A viable female in cephalic presentation with Apgars 8 and 9. Normal-appearing placenta with meconium staining. Thin meconium, amniotic fluid. Normal-appearing bilateral fallopian tubes and ovaries. INDICATIONS FOR THE PROCEDURE: Ms. Iliana Dalal is a 38-year-old G7, P2 at 37 weeks and 2 days. Her antepartum course was complicated by history of 2 prior deliveries with suspicion of a prior classical based on history, opioid dependence, on Subutex, hepatitis C, genital herpes, history of cervical insufficiency with cerclage in place, advanced maternal age, tobacco use. The patient presents today for a repeat delivery and presents at this gestational age due to her comorbidities complicating her . The patient has a family history of fallopian tube cancer and requested a risk reducing salpingectomy which was approved by the ethics committee. DESCRIPTION OF PROCEDURE: The patient was brought to the operating room. She was placed under spinal anesthesia, placed in supine position. Anesthesia was assessed and adequate. The patient was then placed in dorsal lithotomy position for removal of the cerclage. A speculum was placed into the vagina. The cerclage was evaluated and grasped in the 12 o'clock position, elevated and the [place] tape was cut and the cerclage removed intact. The speculum was then removed from the vagina. At this time, the patient was then prepped and draped in a sterile fashion and a Cintron catheter was placed. She was given Ancef for surgical prophylaxis. Her anesthesia was assessed and proven to be adequate. A Pfannenstiel skin incision was made using the scalpel, this was carried down to the underlying fascial layer. The fascia was incised in the midline and extended bilaterally using Jain scissors. The superior aspect of the fascial incision was grasped using Terry clamps, tented upward, and dissected free from the underlying rectus abdominis muscles. The same was done at the inferior aspect of the fascial incision. The peritoneum was then entered using both blunt and sharp dissection. The peritoneal incision was extended using sharp dissection. Several of the adhesions had to be taken down to allow for an appropriate mobilization. The bladder blade was then inserted. The adhesions from the dome of the bladder to the lower uterine segment were transected and these were taken down. The Janes O retractor was then placed into the abdomen where a low-transverse hysterotomy was made using the scalpel. The amniotic membranes were ruptured and it was thin meconium-stained amniotic fluid and the hysterotomy was extended using blunt dissection. The infant was then delivered in cephalic presentation. Infant's cord was clamped and cut. Infant was handed to the waiting neonatology team. Cord blood was obtained. The placenta was delivered spontaneously intact. The uterus was cleared of all clot and debris. The hysterotomy was closed in a running locking fashion creating hemostasis. The uterus was exteriorized from the abdomen. The fallopian tubes and ovaries were evaluated. Bilateral salpingectomy was performed by transecting the avascular portion of the medial salpinx using the bovie, clamping the vasculature with hemostats, removing the fallopian tube in its entirety and ligated the pedicle sites with chromic suture. This was performed bilaterally. Good hemostasis was achieved. The uterus was then placed back in the abdomen. The pelvis was then irrigated and cleared of all clot and debris. The fallopian tubes dissection sites and hysterotomy were again evaluated noting hemostasis. The Janes O retractor was then removed from the abdomen and the rectus abdominis muscles were evaluated and hemostatic. The fascia was closed in a running fashion using 0 PDS. The subcutaneous layer was copiously irrigated, hemostatic with the use of a Bovie. Subcutaneous layer was closed using 3-0 Vicryl and the skin was closed using 4-0 Monocryl and Dermabond. The patient tolerated the procedure well. There were no complications. Mother and will be transferred to routine recovery. All counts were correct x3. Job ID: [id number] [facility]
== END 2019-01-01 13:34 | disposition home or self-care (01) | DRG 784 ==
LOC: L&D 09:34 → 3SW 16:24
PROVIDERS: ADMIT Obstetrics & Gynecology; ATTEND Obstetrics & Gynecology
PROC: 10D00Z1 Extraction of Products of Conception, Low, Open Approach (ICD-10-PCS; principal; 2018-12-29)
PROC: 0UT70ZZ Resection of Bilateral Fallopian Tubes, Open Approach (ICD-10-PCS; 2018-12-29)
PROC: 0UCC7ZZ Extirpation of Matter from Cervix, Via Natural or Artificial Opening (ICD-10-PCS; 2018-12-29)
DX: O34.211 Maternal care for low transverse scar from previous cesarean delivery (principal); O99.324 Drug use complicating childbirth; F11.20 Opioid dependence, uncomplicated; O98.42 Viral hepatitis complicating childbirth; O98.32 Other infections with a predominantly sexual mode of transmission complicating childbirth; D62 Acute posthemorrhagic anemia; A60.00 Herpesviral infection of urogenital system, unspecified; B18.2 Chronic viral hepatitis C; O90.81 Anemia of the puerperium; O77.0 Labor and delivery complicated by meconium in amniotic fluid; O99.334 Smoking (tobacco) complicating childbirth; F17.200 Nicotine dependence, unspecified, uncomplicated; Z3A.37 37 weeks gestation of pregnancy; Z37.0 Single live birth; Z80.8 Family history of malignant neoplasm of other organs or systems
CPT/HCPCS: 36415; 51702; 80053; 80306; 85027; 86780; 86850; 86900; 86901; 87340; 87389; 87522; 88307; J0131; J1100; J1200; J1885; J2175; J2250; J2270; J2405; J2590